=== PATIENT | female | born 1980 | race Two or more races ===

== ENCOUNTER 2017-01-05 17:21 | Emergency (ER) | payer MEDICAID ==
[2017-01-05] MEDS ORDERED: WELLBUTRIN XL150 M1 (17:42)
== END 2017-01-05 20:45 ==
LOC: EDMED 17:21
DX: R55 Syncope and collapse (principal); R45.851 Suicidal ideations; F32.9 Major depressive disorder, single episode, unspecified; Z79.899 Other long term (current) drug therapy